=== PATIENT | female | born 1960 | race American Indian/Alaskan Native ===

== ENCOUNTER 2019-07-16 14:05 | Outpatient (CLI) | payer OTHER ==
--- NOTE | 2019-07-16 15:32 | Ultrasound Report ---
ULTRASOUND-GUIDED NEEDLE CORE BIOPSY RIGHT BREAST WITH CLIP PLACEMENT CLINICAL: A suspicious right upper outer mammary lymph node. FINDINGS: The procedure was explained to the patient and informed consent was obtained. Ultrasound demonstrated the previously identified lymph node with a small fatty hilum.. I marked the breast with a felt tip marker and a timeout was called. The skin was prepped with Chloro -Prep and anesthetized with 1% lidocaine. Needle core biopsy was performed through small dermatotomy using ultrasound guidance, 2% lidocaine wi th epinephrine for deep anesthesia and a 14-gauge Achieve biopsy device. 3 cores were obtained and pl aced in formalin. A clip was deployed within the node. The patient tolerated the procedure well and there were no apparent complications. Hemostasis was ach ieved with minimal effort and a sterile dressing was applied. A post procedure mammogram demonstrated concordant clip deployment. She left the department in good c ondition and was given instructions for wound care and follow-up. IMPRESSION: Uncomplicated ultrasound guided needle core biopsy with clip placement right breast. Signer Name: David Hernández MD Signed: 07/16/2019 3:28 PM Workstation Name: [id number]
--- NOTE | 2019-07-17 12:18 | Mammography Report ---
RIGHT DIGITAL DIAGNOSTIC MAMMOGRAM CLINICAL: For clip placement after ultrasound guided needle biopsy. COMPARISON: 01/25/2019 and 03/27/2019 outside mammograms FINDINGS: A biopsy clip is identified at 9:30 o'clock and correlates with the previously described ly mph node. IMPRESSION: Concordant clip deployment. Signer Name: David Hernández MD Signed: 07/17/2019 12:13 PM Workstation Name: [id number]
== END 2019-07-16 14:06 | disposition home or self-care (01) ==
LOC: SPVWC 14:05
PROVIDERS: ATTEND Surgery
DX: N63.0 Unspecified lump in unspecified breast (principal)
CPT/HCPCS: 19083; 77065; 88305; 88342; A4648

== ENCOUNTER 2021-07-16 08:56 | Outpatient (CLI) | payer OTHER ==
--- NOTE | 2021-07-19 11:00 | Mammography Report ---
DIGITAL SCREENING MAMMOGRAM WITH CAD, 07/19/2021 CLINICAL INFORMATION / INDICATION: Routine screening mammography. TECHNIQUE: Digital bilateral 2D mammography was obtained in the craniocaudal and mediolateral obliqu e projections. This examination was interpreted with the benefit of Computer-Aided Detection analysis . COMPARISON: 01/25/2019 FINDINGS: Breast Density: The breasts are heterogeneously dense, which may obscure small masses. No dominant mass, suspicious calcifications, or architectural distortion in the right breast. Right b reast biopsy clip is noted laterally. There are increasing calcifications in the left breast, central and upper outer quadrant. Magnificati on views are recommended. IMPRESSION: Increasing areas of calcifications, left breast. Recommend further evaluation with left m agnification views. Follow up recommendation: Special View: Mag BI-RADS Category 0: Incomplete. Needs additional imaging evaluation and/or prior mammograms for marichuy rison. A "normal" or negative report should not discourage follow up or biopsy of a clinically significant f inding. A written summary of these findings will be mailed to the patient. The patient will be entered into a mammography reporting system which will generate a reminder letter for the patient's next appointmen t at the appropriate interval. The [employer] recommends yearly mammograms starting at age 40 and continuing as l carrie as a woman is in good health. Breast MRI is recommended for women with an approximate 20-25% or greater lifetime risk of breast cancer, including women with a strong family history of breast or ova duran cancer or who have been treated for Hodgkin's disease. Signer Name: Samia Marcos MD Signed: 07/19/2021 10:55 AM Workstation Name: [employer]
== END 2021-07-16 08:57 | disposition home or self-care (01) ==
LOC: SPVWC 08:56
PROVIDERS: ATTEND Student in an Organized Health Care Education/Training Program
DX: Z12.31 Encounter for screening mammogram for malignant neoplasm of breast (principal)
CPT/HCPCS: 77067